=== PATIENT | female | born 1995 | race Caucasian/White ===

== ENCOUNTER 2016-09-20 00:42 | Emergency (ER) | payer OTHER ==
--- NOTE | 2016-09-20 02:31 | ER Document Report ---
ED General - General Chief Complaint: Irregular Pulse Stated Complaint: HEART ABNORMALITIES Notes: Patient is a 21-year-old female without past medical history who presents with 3 -4 months of intermittent left-sided chest wall pain. States that this occurs when she lays on her left side or when she bends over. However she has of the pain does not occur when she runs long distances. She denies any associated shortness of breath, nausea, vomiting or diaphoresis. States she did not have these symptoms prior the past several months and that the intermittent pain and feeling of palpitations has increased in frequency in the past several months. She is scheduled to see her primary care physician on the of this month. No history of DVT or pulmonary embolus. She does not use estrogen. No history of connective tissue disorders. She has not noted anything seems to improve the frequency of her symptoms TRAVEL OUTSIDE OF THE [place] IN LAST 30 DAYS: No - Related Data Allergies/Adverse Reactions: No Known Allergies Allergy (Unverified 09/20/16 00:53) Past Medical History - General Information source: Patient - Social History Smoking Status: Never Smoker Frequency of alcohol use: None Drug Abuse: None Lives with: Spouse/Significant other Family History: Reviewed & Not Pertinent Patient has suicidal ideation: No Patient has homicidal ideation: No Renal/ Medical History: Denies: Hx Peritoneal Dialysis Past Surgical History: Reports: Hx Oral Surgery - wisdom teeth - Immunizations Hx Diphtheria, Pertussis, Tetanus Vaccination: Yes Review of Systems - Review of Systems Notes: Constitutional: Negative for fever. HENT: Negative for sore throat. Eyes: Negative for visual changes. Cardiovascular: Positive for chest pain and palpitations Respiratory: Negative for shortness of breath. Gastrointestinal: Negative for abdominal pain, vomiting or diarrhea. Genitourinary: Negative for dysuria. Musculoskeletal: Negative for back pain. Skin: Negative for rash. Neurological: Negative for headaches, weakness or numbness. 10 point ROS negative except as marked above and in HPI. Physical Exam - Vital signs Vitals: Temp Pulse Resp BP Pulse Ox 97.6 F 69 16 147/91 H 100 09/20/16 00:49 09/20/16 00:49 09/20/16 00:49 09/20/16 00:49 09/20/16 00:49 Interpretation: Hypertensive Notes: PHYSICAL EXAMINATION: GENERAL: Well-appearing, well-nourished and in no acute distress. HEAD: Atraumatic, normocephalic. EYES: Pupils equal round and reactive to light, extraocular movements intact, sclera anicteric, conjunctiva are normal. ENT: nares patent, oropharynx clear without exudates. Moist mucous membranes. NECK: Normal range of motion, supple without lymphadenopathy LUNGS: Breath sounds clear to auscultation bilaterally and equal. No wheezes rales or rhonchi. HEART: Regular rate and rhythm without murmurs ABDOMEN: Soft, nontender, normoactive bowel sounds. No guarding, no rebound. No masses appreciated. EXTREMITIES: Normal range of motion, no pitting or edema. No cyanosis. NEUROLOGICAL: No focal neurological deficits. Moves all extremities spontaneously and on command. PSYCH: Normal mood, normal affect. SKIN: Warm, Dry, normal turgor, no rashes or lesions noted. Course - Re-evaluation Re-evalutation: 09/20/16 02:27 Patient presents with palpitations but is in no acute distress. Vitals within normal limits at time of arrival. EKG unremarkable with a normal sinus rhythm. Laboratories are unremarkable. Patient also reports positional chest pain that has been ongoing for the past several months. Chest x-ray is clear. A bedside echocardiogram does not show any evidence of regional wall motion abnormality, pericardial effusion, or dilated right ventricle. At this time based on exam and history do not suspect a new onset arrhythmia, ACS, acute pulmonary embolus, aortic dissection. Patient encouraged to follow-up with their primary care physician as well as cardiology and a referral has been provided. At this time will discharge with return precautions and follow-up recommendations. Verbal discharge instructions given a the bedside and opportunity for questions given. Medication warnings reviewed. Patient is in agreement with this plan and has verbalized understanding of return precautions and the need for primary care follow-up in the next 24-72 hours. - Vital Signs Vital signs: Temp Pulse Resp BP Pulse Ox 97.6 F 69 12 120/86 H 100 09/20/16 00:49 09/20/16 00:49 09/20/16 01:35 09/20/16 01:35 09/20/16 01:35 - Diagnostic Test Radiology reviewed: Image reviewed, Reports reviewed Radiology results interpreted by me: 09/20/16 02:27 Chest x-ray: No acute infiltrate or pneumothorax - EKG Interpretation by Me Additional EKG results interpreted by me: 09/20/16 02:27 Sinus bradycardia. Rate is 50. No ST elevations or depressions. QTC is 427. Discharge - Discharge Clinical Impression: Palpitations, Chest wall discomfort Condition: Good Disposition: HOME, SELF-CARE Additional Instructions: Please follow-up closely with cardiology regarding your palpitations. Return if you pass out, have shortness of breath, persistent vomiting, develop significant chest pain, or have any other symptoms that are concerning to you. Referrals: REZA WILSON MD [ACTIVE STAFF] - Follow up as needed
[2016-09-20 02:35] VITALS: BP 110/78
--- NOTE | 2016-09-20 08:25 | EKG REPORT ---
SEVERITY:- BORDERLINE ECG - SINUS RHYTHM NONSPECIFIC ST-T ANTEROSEPTAL CHANGES : Confirmed by: Shree Dial MD 20-Sep-2016 08:24:07
== END 2016-09-20 02:35 | disposition home or self-care (01) ==
LOC: ER 00:42
DX: R00.2 Palpitations (principal); R07.89 Other chest pain
CPT/HCPCS: 71010; 93005; 93010; 99285